=== PATIENT | female | born 1955 | race Caucasian/White ===

== ENCOUNTER 2016-11-12 16:45 | Emergency (ER) | payer OTHER ==
[2016-11-12 18:57] LABS: HEMOGLOBIN 15.3 gm/dl (12.3-15.3); RED BLOOD COUNT 4.72 M/UL (4.00-5.10); WHITE BLOOD COUNT 6.1 K/UL (4.5-11.0)
[2016-11-12 19:23] LABS: BUN/CREATININE RATIO 14 (0-10)
== END 2016-11-12 23:30 | disposition home or self-care (01) ==
LOC: ER1 16:45
PROVIDERS: Family Medicine
DX: R06.00 Dyspnea, unspecified (principal); I49.9 Cardiac arrhythmia, unspecified; I49.3 Ventricular premature depolarization; E11.9 Type 2 diabetes mellitus without complications; E78.5 Hyperlipidemia, unspecified; F17.210 Nicotine dependence, cigarettes, uncomplicated; M19.90 Unspecified osteoarthritis, unspecified site; Z79.84 Long term (current) use of oral hypoglycemic drugs
CPT/HCPCS: 36415; 71010; 80053; 81001; 82550; 82553; 83735; 83874; 84443; 84484; 85025; 85379; 93005; 99285